=== PATIENT | male | born 1970 | race Caucasian/White ===

== ENCOUNTER 2023-05-11 00:53 | Observation (INO) | payer BC ==
[2023-05-11] MEDS ORDERED: Diltiazem 125 MG/25 ML SDV ONE (01:14)
[2023-05-11 01:20] LABS: #Basophils 0.1 thou/uL (0.0-0.2); #Eosinphils 0.2 thou/uL (0.0-0.7); #Monocytes 0.6 thou/uL (0.11-0.59); #Neutrophils 3.6 thou/uL (1.40-6.50); %Eosinophils 2.9 % (0.0-10.0); %Lymphocytes 41.1 % (21.0-51.0); %Monocytes 7.6 % (0.0-10.0); %Neutrophils 47.3 % (42.0-75.0); Hemoglobin 15.8 g/dL (14.0-18.0); Mean Corpuscular Hemoglobin 30.3 pg (27.0-31.0); Mean Corpuscular Volume 86.6 fl (78.0-98.0); Mean Platelet Volume 10.2 fL (7.4-10.4); Platelet Count 229 10x3/uL (130-400); RBC Distribution Width 12.9 % (11.5-14.5); Red Blood Cell (RBC) Count 5.21 mill/uL (4.70-6.10); White Blood Cell (WBC) Count 7.6 10x3/uL (4.8-10.8)
[2023-05-11 02:51] LABS: ALT (SGPT) 26 U/L (8-55); AST (SGOT) 21 U/L (5-34); Albumin 4.6 g/dL (3.5-5.0); Alkaline Phosphatase 74 U/L (40-110); Anion Gap 15 mmol/L (10-20); BUN (Urea Nitrogen) 14 mg/dL (8.9-20.6); Bilirubin, Total 0.4 mg/dL (0.2-1.2); Calc. Creatinine Clearance 0 mL/min (70-130); Calcium 10.2 mg/dL (7.8-10.44); Carbon Dioxide 22 mmol/L (22-29); Chloride 106 mmol/L (98-107); Estimated GFR 87; Globulin 3.3 g/dL (2.4-3.5); Glucose 195 mg/dL (70-105); Potassium 4.2 mmol/L (3.5-5.1); Protein, Total 7.9 g/dL (6.0-8.3); Sodium 139 mmol/L (136-145)
[2023-05-11] MEDS ORDERED: Dextrose 5% in Water 1,000 ML IV PRN (03:33)
[2023-05-11] MEDS ORDERED: Dextrose 50% Abboject 50 ML SYRINGE SLOW IVP PRN (03:33)
[2023-05-11] MEDS ORDERED: Glucagon 1 MG/ML KIT IM PRN (03:33)
[2023-05-11] MEDS ORDERED: HumaLOG 300 UNITS/3 ML VIAL SC PRN (03:33)
[2023-05-11 04:24] LABS: #Basophils 0.1 thou/uL (0.0-0.2); #Eosinphils 0.2 thou/uL (0.0-0.7); #Monocytes 0.5 thou/uL (0.11-0.59); #Neutrophils 3.2 thou/uL (1.40-6.50); %Basophils 0.8 % (0.0-1.0); %Eosinophils 3.2 % (0.0-10.0); %Lymphocytes 37.5 % (21.0-51.0); %Monocytes 7.3 % (0.0-10.0); %Neutrophils 50.9 % (42.0-75.0); Hemoglobin 14.8 g/dL (14.0-18.0); Mean Corpuscular HGB CONC 33.7 g/dL (32.0-36.0); Mean Corpuscular Hemoglobin 29.3 pg (27.0-31.0); Mean Corpuscular Volume 86.9 fl (78.0-98.0); Mean Platelet Volume 10.4 fL (7.4-10.4); Platelet Count 208 10x3/uL (130-400); RBC Distribution Width 12.8 % (11.5-14.5); Red Blood Cell (RBC) Count 5.05 mill/uL (4.70-6.10); White Blood Cell (WBC) Count 6.3 10x3/uL (4.8-10.8)
[2023-05-11 04:51] LABS: Troponin I Less than 0.010 ng/mL (< 0.028)
[2023-05-11 04:53] LABS: Anion Gap 15 mmol/L (10-20); BUN (Urea Nitrogen) 15 mg/dL (8.9-20.6); Calc. Creatinine Clearance 0 mL/min (70-130); Calcium 9.6 mg/dL (7.8-10.44); Carbon Dioxide 19 mmol/L (22-29); Chloride 107 mmol/L (98-107); Estimated GFR 105; Glucose 163 mg/dL (70-105); Magnesium 2.1 mg/dL (1.6-2.6); Potassium 4.4 mmol/L (3.5-5.1); Sodium 137 mmol/L (136-145)
[2023-05-11] MEDS: Levothyroxine Sodium 25 MCG TAB PO SCH (05:53)
[2023-05-11 06:29] VITALS: BMI 32.8
[2023-05-11 08:14] LABS: Troponin I 0.014 ng/mL (< 0.028)
[2023-05-11] MEDS: Insulin Glargine 30 UNITS/0.3 ML VIAL SC SCH (08:36)
[2023-05-11] MEDS: Diltiazem 125 MG in Sodium Chloride 0.9% 100 ML IVPB SCH (14:53)
[2023-05-11] MEDS ORDERED: Flecainide 50 MG TAB PO SCH (17:00)
[2023-05-11] MEDS ORDERED: Aspirin 325 MG TAB PO SCH (17:00)
[2023-05-11] MEDS ORDERED: Insulin Glargine 30 UNITS/0.3 ML VIAL SC SCH (21:00)
[2023-05-11] MEDS ORDERED: Rosuvastatin 20 MG TAB PO SCH (21:00)
[2023-05-11] MEDS ORDERED: Melatonin 3 MG TAB PO PRN (22:51)
[2023-05-12] MEDS: Diltiazem 125 MG in Sodium Chloride 0.9% 100 ML IVPB SCH (04:18)
[2023-05-12] MEDS: Levothyroxine Sodium 25 MCG TAB PO SCH (05:38)
[2023-05-12] MEDS ORDERED: Aspirin 325 MG TAB PO SCH (09:00)
[2023-05-12] MEDS ORDERED: Flecainide 50 MG TAB PO SCH (09:00)
[2023-05-12] MEDS: Insulin Glargine 30 UNITS/0.3 ML VIAL SC SCH (09:13)
[2023-05-12 16:16] VITALS: BP 116/76; TEMP 98.1
== END 2023-05-12 17:20 | disposition home or self-care (01) ==
LOC: ERS 00:53 → SUATTDRO 00:53 → 2SW 03:26
PROVIDERS: ADMIT Family Medicine; ATTEND Internal Medicine
DX: I48.91 Unspecified atrial fibrillation (principal); R00.0 Tachycardia, unspecified; I10 Essential (primary) hypertension; E11.9 Type 2 diabetes mellitus without complications; E78.5 Hyperlipidemia, unspecified; Z90.49 Acquired absence of other specified parts of digestive tract; Z79.82 Long term (current) use of aspirin; Z79.899 Other long term (current) drug therapy; Z79.4 Long term (current) use of insulin; Z79.84 Long term (current) use of oral hypoglycemic drugs; Z79.890 Hormone replacement therapy
CPT/HCPCS: 36415; 36416; 71045; 80053; 83735; 84100; 84443; 84484; 85025; 93005; 93010; 93306; 96365; 96366; 96372; 96376; G0378; J1650; J1815; J3490